=== PATIENT | male | born 1945 | race Caucasian/White ===

== ENCOUNTER → 2024-07-24 | Outpatient (CLI) | payer OTHER, SELFPAY ==
[2024-07-24 11:40] LABS: Collection Type, Urine Clean Catch
[2024-07-24 12:00] LABS: Bilirubin,Urine Negative (Negative); Blood,Urine Negative (Negative); Clarity,Urine Clear (Clear/Hazy); Color,Urine Yellow (Lt Yel-Yel); Culture Indicated,Urine Not Indicated; Glucose, Urine Negative (Negative); Ketones,Urine Negative (Negative); Leukocyte Esterase,Urine Negative (Negative); Nitrite,Urine Negative (Negative); Protein,Urine Negative (Neg - Trace); RBC,Urine 1 /hpf (0-3); Specific Gravity,Urine 1.013 (1.001-1.035); Squamous Epithelial Cell,Urine < 1 /hpf (0-5); Urobilinogen,Urine Negative mg/dL (0.0-1.0); WBC,Urine 3 /hpf (0-5)
[2024-07-24 12:00] LABS: Basophils # (Auto) 0.1 Thou/mm3 (0.0-0.2); Basophils % (Auto) 2 % (0-2.5); Eosinophils # (Auto) 0.2 Thou/mm3 (0.0-0.5); Eosinophils % (Auto) 3 % (0-10); Hemoglobin 15.7 g/dL (13.5-16.0); Immature Granulocytes % (Auto) 0 % (0-0); Immature Granulocytes Auto 0.02 Thou/mm3 (0.00-0.00); Lymphocytes # (Auto) 1.7 Thou/mm3 (1.0-4.8); Lymphocytes % (Auto) 23 % (10-50); Mean Corpuscular HGB Conc 33.4 g/dl (31.0-37.0); Mean Corpuscular Hemoglobin 29.6 pg (25.0-35.0); Mean Corpuscular Volume 89 fL (80-100); Monocytes # (Auto) 0.7 Thou/mm3 (0.0-0.8); Monocytes % (Auto) 10 % (0-12); Neutrophils # (Auto) 4.6 Thou/mm3 (1.8-7.7); Neutrophils % (Auto) 62 % (37-80); Nucleated Red Blood Cell % 0 /100 WBC (0); Platelet Count 322 Thou/mm3 (140-440); RDW Standard Deviation 44.6 fL (35.1-43.9); Red Blood Count 5.31 Miln/mm3 (4.50-5.90); White Blood Count 7.4 Thou/mm3 (3.8-10.6)
[2024-07-24 12:20] LABS: Glucose Estimated Average 120 mg/dL (80-131); Hemoglobin A1C 5.8 % Hgb (4.8-6.0)
[2024-07-24 12:24] LABS: Prostate Specific Antigen 6.72 ng/mL (0-4.00)
[2024-07-24 12:44] LABS: Alanine Aminotransferase 9 U/L (10-49); Albumin, Serum 3.9 gm/dL (3.4-4.8); Albumin/Globulin Ratio 1.3 (1.2-2.2); Alkaline Phosphatase 66 U/L (46-116); Anion Gap 6 (7-16); Aspartate Amino Transferase 14 U/L (0-34); BUN/Creatinine Ratio 14 Ratio (12-20); Bilirubin,Total 0.7 mg/dL (0.3-1.2); Blood Urea Nitrogen 14 mg/dL (9-23); Calcium 9.2 mg/dL (8.3-10.6); Calcium (Corrected) 9.3 mg/dL (8.5-10.1); Carbon Dioxide 32.6 mMol/L (20.0-31.0); Cardiac Risk Estimate 3.6 RATIO (4.0-6.7); Chloride 100 mMol/L (98-107); Cholesterol 195 mg/dL (132-200); Glucose 121 mg/dL (74-106); HDL Cholesterol 54 mg/dL (40-60); LDL Cholesterol,Calculated 113 mg/dL (0-130); Osmolality,Calculated 279 (275-295); Potassium 4.4 mMol/L (3.4-5.1); Sodium 139 mMol/L (136-145); Thyroid Stimulating Hormone 2.64 uIU/mL (0.55-4.78); Total Protein 6.9 gm/dL (5.7-8.2); Triglycerides 142 mg/dL (30-150); eGFR > 60 See Note
== END | disposition home or self-care (01) ==
LOC: COPL 10:57
PROVIDERS: PCP Physician Assistant; Referring Provider Physician Assistant; Visit Provider Physician Assistant
DX: I25.118 Atherosclerotic heart disease of native coronary artery with other forms of angina pectoris (principal)
CPT/HCPCS: 36415; 80053; 80061; 81001; 83036; 84153; 84443; 85025

== ENCOUNTER → 2024-07-31 | Outpatient (CLI) | payer OTHER, SELFPAY ==
[2024-08-02 06:54] LABS: Fecal Globin Result NOT DETECTED (NOT DETECTED)
== END | disposition home or self-care (01) ==
LOC: SLDO 11:59
PROVIDERS: Referring Provider Physician Assistant; Visit Provider Physician Assistant
DX: I25.118 Atherosclerotic heart disease of native coronary artery with other forms of angina pectoris (principal)
CPT/HCPCS: 82274; G0328

== ENCOUNTER → 2024-08-15 | Outpatient (CLI) | payer OTHER, SELFPAY ==
--- NOTE | 2024-08-15 09:45 | XR_ITS ---
Examination: Urinary bladder sonography complete TECHNIQUE: Grayscale sonographic images urinary bladder Exam date and time: Elevated PSA on laboratory examination July 24, 2024 FINDINGS: Prostate volume 43 cc Multiple solid prostate masses, the largest 18 x 18 x 18 mm Mid bladder hyperechoic solid mass 11 x 10 x 8 mm IMPRESSION: Multiple prostate nodules, recommend transrectal prostate sonography follow-up 1.1 x 1.0 x 2.8 cm possible bladder mass, recommend cystoscopy follow-up to exclude bladder cancer
== END | disposition home or self-care (01) ==
LOC: CDIM 09:21
PROVIDERS: PCP Family Medicine; Referring Provider Physician Assistant; Visit Provider Physician Assistant
DX: N40.2 Nodular prostate without lower urinary tract symptoms (principal); N32.89 Other specified disorders of bladder
CPT/HCPCS: 76857

== ENCOUNTER → 2024-10-26 | Outpatient (BNVA) | payer OTHER, SELFPAY | END | disposition home or self-care (01) | PROVIDERS: PCP Family Medicine; Referring Provider Family Medicine; Visit Provider Urology | DX: N40.1 Benign prostatic hyperplasia with lower urinary tract symptoms (principal); N13.8 Other obstructive and reflux uropathy; R35.0 Frequency of micturition; R97.20 Elevated prostate specific antigen [PSA] | CPT/HCPCS: 81003; 99213; G0463 ==

== ENCOUNTER → 2024-11-16 | Outpatient (BNVA) | payer OTHER, SELFPAY | END | disposition home or self-care (01) | PROVIDERS: PCP Family Medicine; Referring Provider Family Medicine; Visit Provider Urology | DX: C61 Malignant neoplasm of prostate (principal); N40.1 Benign prostatic hyperplasia with lower urinary tract symptoms; N13.8 Other obstructive and reflux uropathy | CPT/HCPCS: 55700; 76942; 81003; 96372; A4649; J1580; J3490; A9270 ==

== ENCOUNTER → 2024-11-23 | Outpatient (BNVA) | payer OTHER, SELFPAY | END | disposition home or self-care (01) | PROVIDERS: PCP Family Medicine; Referring Provider Family Medicine; Visit Provider Urology | DX: N40.1 Benign prostatic hyperplasia with lower urinary tract symptoms (principal); R39.12 Poor urinary stream | CPT/HCPCS: 51741; 51798; 99212; G0463 ==

== ENCOUNTER 2025-01-10 12:39 | Observation (INO) | payer OTHER, SELFPAY ==
[2025-01-09 11:09] VITALS: BMI 21.8
--- NOTE | 2025-01-09 11:30 | EKG_ITS ---
[facility] Test Date: 2025-01-09 Pat Name: DENZEL DREW Department: Room: - Gender: Male [employer] Manager: RT STUDENT : 1945 Requested By: Kurt Henry Order Number: [id number] Reading MD: Kurt Henry Measurements Intervals [place] Rate: 86 P: 88 MS: 142 QRS: -40 QRSD: 109 T: 76 QT: 363 QTc: 435 Interpretive Statements SINUS RHYTHM MARKED LEFT AXIS DEVIATION [QRS AXIS < -30] Compared to ECG 07/29/2023 12:29:17 Left-axis deviation now present Sinus arrhythmia no longer present ST (T wave) deviation no longer present /store/S0/[id number]/ecg/[id number].pdf
[2025-01-09 14:00] LABS: Alanine Aminotransferase < 7 U/L (10-49); Albumin, Serum 4.1 gm/dL (3.4-4.8); Albumin/Globulin Ratio 1.3 (1.2-2.2); Alkaline Phosphatase 66 U/L (46-116); Anion Gap 7 (7-16); Aspartate Amino Transferase 16 U/L (0-34); BUN/Creatinine Ratio 8 Ratio (12-20); Bilirubin,Total 0.5 mg/dL (0.3-1.2); Blood Urea Nitrogen 7 mg/dL (9-23); Calcium 9.5 mg/dL (8.3-10.6); Calcium (Corrected) 9.5 mg/dL (8.5-10.1); Carbon Dioxide 32.5 mMol/L (20.0-31.0); Chloride 103 mMol/L (98-107); Creatinine (Component) 0.9 mg/dL (0.6-1.3); Estimated Creatinine Clearance 59.3 mL/min (>60); Globulin 3.1 gm/dL (2.3-3.5); Glucose 71 mg/dL (74-106); Osmolality,Calculated 279 (275-295); Potassium 4.2 mMol/L (3.4-5.1); Sodium 142 mMol/L (136-145); Total Protein 7.2 gm/dL (5.7-8.2); eGFR > 60 See Note
--- NOTE | 2025-01-09 14:40 | SUR.PREOP ---
Cardiac records reviewed with Dr Henry.
[2025-01-10] VITALS (14 sets, daily range): BP systolic 104–151; BP diastolic 65–102; PULSE 75–96; RESP 17–22; TEMP 36.1–36.6; O2SAT 93–99; BMI 21.7
[2025-01-10] MEDS: RINGERS LACTATED 1000 ML 1,000 ML 20 ML IV (08:40)
[2025-01-10] MEDS: ALBUTEROL RT 2.5 MG/3 ML NEBU INH (08:52)
--- NOTE | 2025-01-10 09:40 | CHAP ---
Patient was sleeping peacefully. I prayed beside his bed quietly.
--- NOTE | 2025-01-10 11:22 | SUR.PHASEI ---
pt received from OR in recovery bay 1. pt obtunded, breathing unlabored on oxymask 6l, oral airway in place. v/s stable. pt has [address] in [address]. report received from Dr. Simpson and Jj RIVERA.
--- NOTE | 2025-01-10 11:30 | ESOP_ITS ---
Date of Procedure 01/10/25 Pre Op Diagnosis BPH with urinary obstruction and LUTS, gross hematuria, biopsy-proven adenocarcinoma of the prostate gland Post Op Diagnosis Same plus very trabeculated bladder with multiple shallow diverticuli 3 bladder tumor anterior bladder wall Procedure Cystoscopic examination, transurethral resection and fulguration of bladder tumors, insertion of Yi catheter Findings Trabeculated bladder with shallow diverticuli very large median lobe 3 bladder tumors anterior bladder wall 1 in the diverticulum Procedure Description Indication for procedure this is a 79-year-old gentleman this patient has BPH with urinary obstruction and LUTS he has elevated PSA biopsy was done this revealed adenocarcinoma of the prostate gland. Patient has 1 episode of gross hematuria prior to the biopsy he was recommended cystoscopic examination procedure and complications were discussed with patient in great detail and i nformed consent is obtained. Patient was brought to the operating room in a satisfactory condition after appropriate premedication he was appropriately identified by surgeon and operating room staff site scope and indication of the procedure were reconfirmed with the patient Patient was positioned in the supine position on the operating table general anesthesia was given uneventfully patient was next positioned in a dorsal lithotomy position parts were prepped and draped in the usual sterile fashion 2% lidocaine was instilled into the urethra. 21 cystoscope was introduced into the bladder per urethra anterior urethra was without any stricture prostatic urethra reveals large median lobe it was obstructed. Inside of the bladder and all the quadrant was carried out there were 3 tumors in the anterior bladder wall. Decision was made to resect the tumors and fulgurate. Cystoscope was withdrawn gently I used 25 resectoscope inserted into the bladder. Sharp dissection with the cutting current I was able to resect the tumors the base of the tumor was fulgurated no active bleeding was seen. Using Ilich evacuator bladder tumor fragments were removed next the instrument was withdrawn gently #20 Yi catheter was inserted into the bladder catheter balloon was inflated with 10 cc of water, catheter was irrigated here return of the fluid was light pink. Next patient after having tolerated the procedure well was transferred to recovery room in a satisfactory condition. Patient is 79-year-old gentleman she had serial bladder tumor and tumors were resected he is going to be admitted in the hospital overnight for observation Anesthesia GETA Pathology / specimen Other (Bladder tumor) Estimated Blood Loss 5 Condition Stable Disposition PACU Surgeon Kesha Chua MD Surgical Staff Operation Date: 01/10/25 10:00 Case Staff Anesthesiologist: Bryon Simpson
[2025-01-10] MEDS: fentaNYL CIT INJ 50 mCg/ML AMP 2ML 25 MCG IVP (12:17)
[2025-01-10] MEDS: RINGERS LACTATED 1000 ML 1,000 ML 80 ML IV (12:22)
--- NOTE | 2025-01-10 12:42 | SUR.PHASEII ---
pt awake and alert, breathing unlabored on 2l nc. v/s stable. pt has [address] in [address]. report called to Merly Rueda. pt will be transferred to room at this time.
--- NOTE | 2025-01-10 13:16 | ESHP_ITS ---
<Statement entered by Dawood Estevez MD - 01/10/25 20:15> 79-year-old male with past medical history of BPH with urinary obstruction and biopsy-proven adenocarcinoma of the prostate who is admitted s/p cystoscopy and transurethral resection and fulguration of bladder tumors with insertion of Yi catheter after. Findings include 3 bladder tumors that were removed and now being admitted overnight for observation. Per urology recommendations, Yi is to be left in place and will be re-evaluated tomorrow. Otherwise, multi-modal pin management in place. ----- Note reviewed and agree with care plan as documented. Please refer to the note below for further details. Plan discussed with attending physician Dr. Shilpi Estevez MD PGY-2 Internal Medicine Documentation for date of: 01/10/25 HPI History of Present Illness History of present illness: 79 yo M w/ PMH BPH with urinary obstruction and LUTS was found to have elevated PSA, subsequent biopsy revealed adenocarcinoma of prostate gland. Pt then reported hematuria, was brought to [facility] for cystoscopy w/ Urologist Dr. Chua. Cystoscopy performed today 01/10/25 revealed 3 tumors in the anterior bladder wall. Decision was made to resect the tumors and fulgurate without complication and Yi was placed. Now being admitted by internal medicine team for observation. Post-procedure, pt endorses ongoing 3/10 suprapubic pain exacerbated by urination and mild constipation. Otherwise denies chest pain, fever, chills, n/v/d. PCP: Dr. Gigi Villarreal PMHx: BPH, Prostate Ca Medications: None FHx: None SHx: 30 pack year smoke hx, currently smoking 2-3 cigs daily for last 3 months. No EtOH. Lives alone in house, only family is brother in [place]. PSHx: Cholecystectomy Review of Systems Review of Systems Systems Reviewed: All systems reviewed, normal except as documented Past Medical History Past Medical History GENITOURINARY: Positive Benign Prostatic Hyperplasia Exam Vital Signs Temp Pulse Resp BP Pulse Ox O2 Flow Rate 97.2 F 76 17 139/82 H 97 2 01/10/25 12:00 01/10/25 12:30 01/10/25 12:30 01/10/25 12:30 01/10/25 12:30 01/10/25 12:30 Narrative Exam General: AOx3, no acute distress, able to speak full sentences HEENT: NC/AT, mucous membranes moist, bilateral sclera anicteric Cardiovascular: regular rate and rhythm, S1/S2 present, no murmurs appreciated Pulmonary: clear to auscultation bilaterally, no rales/rhonchi/wheezes Abdominal: soft, suprapubic TTP, non-distended, no rebound/guarding, normal bowel sounds present Musculoskeletal: normal ROM Skin: warm and dry, intact, no rashes Neuro: CN II-XII intact, no focal deficits Results: Labs 01/09/25 12:01 Labs: BMP 01/09/25 12:01 Sodium 142 Potassium 4.2 Chloride 103 Carbon Dioxide 32.5 H BUN 7 L Creatinine 0.9 Glucose 71 L Calcium 9.5 Liver Function 01/09/25 Range/Units 12:01 Total Bilirubin 0.5 (0.3-1.2) mg/dL AST 16 (0-34) U/L ALT < 7 L (10-49) U/L Alkaline Phosphatase 66 (46-116) U/L Albumin 4.1 (3.4-4.8) gm/dL Quality Measures Quality Measures none Advance care planning discussed with:: patient Medications Home Medications and Allergies Allergies Allergy/AdvReac Type Severity Reaction Status Date / Time No Known Allergies Allergy Verified 01/09/25 11:01 Visit Medications Acetaminophen (Acetaminophen 325 Mg Tablet) 650 mg PO Q6H PRN PRN Reason: Fever >99.9 Stop: 02/09/25 11:34 Famotidine (Famotidine Inj 10 Mg/Ml Vial 2 Ml) 20 mg IVP Q12HR VASHTI Stop: 02/09/25 20:59 Finasteride (Finasteride 5 Mg Tablet) 5 mg PO QDAY VASHTI Stop: 02/10/25 08:59 Hydromorphone HCl (Hydromorphone Inj 2 Mg/Ml Vial) 0.5 mg IVP Q4H PRN PRN Reason: Pain 7-10 Stop: 01/15/25 11:34 Hydromorphone HCl (Hydromorphone Inj 2 Mg/Ml Vial) 1 mg IVP Q2HR PRN PRN Reason: BREAKTHROUGH PAIN 7-10 Stop: 01/15/25 13:59 Lactated Ringer's (Lactated Ringers) 1,000 mls @ 80 mls/hr IV .[id number] VASHTI Stop: 02/09/25 12:14 Last Admin: 01/10/25 12:22 Dose: 80 mls/hr Lidocaine (Lidocaine 5% 1 Patch) 1 patch TOP UD PRN; Protocol PRN Reason: Suprapubic Pain Stop: 02/09/25 12:08 Ondansetron HCl (Ondansetron Inj 2 Mg/Ml Inj 2 Ml) 4 mg IVP Q6H PRN; Protocol PRN Reason: NAUSEA OR VOMITING Stop: 02/09/25 11:34 Oxycodone/Acetaminophen (Oxycodone/Apap 5/325 Tablet) 1 tab PO Q4H PRN PRN Reason: PAIN SCALE 4-6 (Moderate Stop: 01/15/25 11:34 Discontinued Medications Albuterol (Albuterol Rt 2.5 Mg/3 Ml Nebu) 2.5 mg INH X1 ONE Stop: 01/10/25 08:45 Last Admin: 01/10/25 08:52 Dose: 2.5 mg Fentanyl Citrate (Fentanyl Cit Inj 50 Mcg/Ml Amp 2ml) 25 mcg IVP Q5M PRN; Protocol PRN Reason: PAIN SCALE 7-10 (Severe Stop: 01/10/25 12:37 Fentanyl Citrate (Fentanyl Cit Inj 50 Mcg/Ml Amp 2ml) 25 mcg IVP Q5M PRN; Protocol PRN Reason: PAIN SCALE 4-6 (Moderate Stop: 01/10/25 12:37 Fentanyl Citrate (Fentanyl Cit Inj 50 Mcg/Ml Amp 2ml) 25 mcg IVP Q5M PRN; Protocol PRN Reason: PAIN SCALE 1-3 (mild Stop: 01/10/25 12:37 Fentanyl Citrate (Fentanyl Cit Inj 50 Mcg/Ml Amp 2ml) 25 mcg IVP X1 ONE Stop: 01/10/25 12:14 Last Admin: 01/10/25 12:17 Dose: 25 mcg Gentamicin Sulfate 160 mg/ (Sodium Chloride) 104 mls @ 100 mls/hr IV X1 ONE Stop: 01/10/25 07:02 Last Admin: 01/10/25 12:02 Dose: Not Given Lactated Ringer's (Lactated Ringers) 1,000 mls @ 20 mls/hr IV .Q24H ONE Stop: 01/11/25 05:59 Last Infusion: 01/10/25 12:03 Dose: Infused Ondansetron HCl (Ondansetron Inj 2 Mg/Ml Inj 2 Ml) 4 mg IVP X1 ONE Stop: 01/10/25 10:38 Assessment & Plan Plan #Bladder tumors, unspecified etiology #Prostate Adenocarcinoma #BPH Pt found to have biopsy-proven prostate adenocarcinoma, subsequently reported painless hematuria. Urology Dr. Chua performed cystoscopy today 01/10/25 to investigate, discovered 3 anterior bladder wall tumors that were subsequently resected. Yi catheter was placed. Pt does not have an Oncologist. Consult with Heme/Onc Dr. Merritt arranged through Dr. Chua per chart review. Latest PSA 6.72 per chart review. - Pt has catheter placed, draining sanguinous urine as expected post-resection. - FINASTERIDE and FLOMAX initiated per Urology - Pt has Yi catheter placed with instructions to not irrigate d/t risk of bladder wall perforation - Dr. Chua will see pt tomorrow to discuss next steps Hospital management: Disposition: Pending FU w/ Urologist Dr. Chua to discuss further management/recovery course Fluids: LR 1000mls @80mls/hr Diet: Renal Diet DVT prophylaxis: N/A GI prophylaxis: Yi: Yes CODE STATUS: full code ----- Plan discussed with attending physician Dr. Shilpi Nichols, Medical Student [employer] Attending Provider Attestation/Addendum I attest that I was physically present for the evaluation, physical examination, lab and imaging review of the patient with the residents. I discussed the case with the residents and agree with the findings and plans of care as documented above. After examination of the patient and review of the clinical data I feel that this patient needs observation in the hospital for further treatment/evaluation Sydnee Dobbins MD
[2025-01-10] MEDS: FAMOTIDINE INJ 10 MG/ML VIAL 2 ML 20 MG IVP (20:20)
[2025-01-10] MEDS: RINGERS LACTATED 1000 ML 1,000 ML 100 ML IV (23:25)
[2025-01-11] VITALS: BP 105/68; PULSE 64; RESP 17; TEMP 36.9; O2SAT 94
[2025-01-11 04:00] VITALS: BP 113/72; PULSE 74; RESP 17; TEMP 36.7; O2SAT 91
[2025-01-11 05:54] LABS: Basophils # (Auto) 0.1 Thou/mm3 (0.0-0.2); Basophils % (Auto) 0 % (0-2.5); Eosinophils # (Auto) 0.0 Thou/mm3 (0.0-0.5); Eosinophils % (Auto) 0 % (0-10); Hematocrit 38.7 % (41.0-53.0); Hemoglobin 12.8 g/dL (13.5-16.0); Immature Granulocytes Auto 0.06 Thou/mm3 (0.00-0.00); Lymphocytes # (Auto) 1.5 Thou/mm3 (1.0-4.8); Lymphocytes % (Auto) 10 % (10-50); Mean Corpuscular HGB Conc 33.1 g/dl (31.0-37.0); Mean Corpuscular Hemoglobin 30.1 pg (25.0-35.0); Mean Corpuscular Volume 91 fL (80-100); Monocytes # (Auto) 1.1 Thou/mm3 (0.0-0.8); Monocytes % (Auto) 7 % (0-12); Neutrophils # (Auto) 12.5 Thou/mm3 (1.8-7.7); Neutrophils % (Auto) 83 % (37-80); Nucleated Red Blood Cell # 0.00 Thou/mm3 (0.00-0.00); Nucleated Red Blood Cell % 0 /100 WBC (0); Platelet Count 218 Thou/mm3 (140-440); RDW Standard Deviation 48.2 fL (35.1-43.9); Red Blood Count 4.25 Miln/mm3 (4.50-5.90); White Blood Count 15.2 Thou/mm3 (3.8-10.6)
[2025-01-11 06:14] LABS: Albumin, Serum 3.4 gm/dL (3.4-4.8); Anion Gap 5 (7-16); BUN/Creatinine Ratio 11 Ratio (12-20); Blood Urea Nitrogen 9 mg/dL (9-23); Calcium 8.6 mg/dL (8.3-10.6); Calcium (Corrected) 9.1 mg/dL (8.5-10.1); Carbon Dioxide 30.3 mMol/L (20.0-31.0); Chloride 105 mMol/L (98-107); Creatinine (Component) 0.8 mg/dL (0.6-1.3); Estimated Creatinine Clearance 66.3 mL/min (>60); Glucose 108 mg/dL (74-106); Magnesium 1.4 mg/dL (1.6-2.6); Osmolality,Calculated 279 (275-295); Phosphorous 2.4 mg/dL (2.4-5.1); Potassium 4.2 mMol/L (3.4-5.1); Sodium 140 mMol/L (136-145); Thyroid Stimulating Hormone 0.67 uIU/mL (0.55-4.78); eGFR > 60 See Note
[2025-01-11 07:05] VITALS: PULSE 92; RESP 18; O2SAT 100
[2025-01-11 07:31] VITALS: BP 125/69; PULSE 58; RESP 18; TEMP 36.2; O2SAT 91
[2025-01-11] MEDS: FAMOTIDINE INJ 10 MG/ML VIAL 2 ML 20 MG IVP (09:19)
[2025-01-11] MEDS: FINASTERIDE 5 MG TABLET PO (09:19)
[2025-01-11] MEDS: Magnesium Sulfate 4 GM Ivpb 4 GM/50 ML BAG IV (09:20)
[2025-01-11] MEDS: RINGERS LACTATED 1000 ML 1,000 ML 100 ML IV (09:24)
--- NOTE | 2025-01-11 11:13 | PC.SS ---
Patient Eddie Whitehead is a 79 Year old male admitted for CYSTO. SS met with patient at bedside to discuss discharge plan. Patient reports he lives alone at home. Patient reports his friend Christina Fernandes is his surrogate decision maker, . Patient reports he does not utilize any source of DME to assist with ambulation. Patient is able to complete all ADLs's independently. Choice of pharmacy is [facility], patients PCP is Francheska Villarreal. At time of discharge patient will return home. Patient's friend will provide transportation. Discharge Plan: Home Next of kin: Friend, Christina Fernandes
[2025-01-11 11:59] VITALS: BP 113/73; PULSE 83; RESP 17; TEMP 36.2; O2SAT 89
--- NOTE | 2025-01-11 13:29 | ESDS_ITS ---
<Statement entered by Dawood Estevez MD - 01/11/25 13:40> Note reviewed and agree with care plan as documented. Please refer to the note below for further details. Plan discussed with attending physician Dawood Estevez MD PGY-2 Internal Medicine Planned Discharge Date 01/11/25 DS: Providers Provider Date of admission: 01/10/25 12:39 Primary care physician: Francheska Villarreal MD Admitting Provider: Kesha Chua MD Attending Provider on Admission: Sydnee Dobbins MD Attending Provider on DC: John Kulkarni Discharging Provider: John Kulkarni DS: Diagnosis Problem List Completed Was Problem List Reviewed/Reconciled?: Yes Hospital Course Hospital Course Hospital course: Eddie Whitehead is an 79 yo M w/ PMH BPH with urinary obstruction and LUTS was found to have elevated PSA, subsequent biopsy revealed adenocarcinoma of prostate gland. Pt then reported hematuria, was brought to [facility] for cystoscopy w/ Urologist Dr. Chua. 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 Decision was made to resect the tumors and fulgurate without complication and Yi was placed. Pt has since been regularly draining sanguinous urine via catheter as expected post-resection. He has not required pain medication this hospital stay. On discharge he is hemodynamically stable and without pain, as such cleared to discharge by both medicine and urology. He will be discharged to home with Tamsulosin 0.4mg PO qD, Finasteride 5mg PO qD, and Percocet 5-325mg PO Q4 PRN for pain. He was instructed to drink fluids, ensure catheter is draining, and follow up with Dr. Chua Urology as outpatient on Wednesday01/15/25. ----- Plan discussed with attending physician Dr. Shilpi Nichols, Medical Student O[employer] Time Spent with Patient Time attestation: Total time spent providing and/or coordinating discharge services: 39 min Time spent: Greater than 30 minutes Quality: VTE Deep Vein Thrombosis/Pulmonary Embolism Present on Admission: No Exam Vital Signs Temp Pulse Resp BP Pulse Ox O2 Del Method O2 Flow Rate 97.2 F 83 17 113/73 89 L Nasal Cannula 1 01/11/25 11:59 01/11/25 11:59 01/11/25 11:59 01/11/25 11:59 01/11/25 11:59 01/11/25 11:59 01/11/25 11:59 Narrative Exam General: AOx3, no acute distress, able to speak full sentences HEENT: NC/AT, mucous membranes moist, bilateral sclera anicteric Cardiovascular: regular rate and rhythm, S1/S2 present, no murmurs appreciated Pulmonary: clear to auscultation bilaterally, no rales/rhonchi/wheezes Abdominal: soft, non-tender, non-distended, no rebound/guarding, normal bowel sounds present Musculoskeletal: normal ROM Skin: warm and dry, intact, no rashes. Yi catheter in place, draining. Neuro: CN II-XII intact, no focal deficits Discharge Plan Plan Patient Disposition: HOME (Self Care) Patient condition on transfer: Stable Care Plan Goals: Starting Tamsulosin 0.4mg PO once daily and Finasteride 5mg PO once daily. Also Percocet 5-325mg PO Q4 PRN for pain. Make sure to drink lots of fluid and check that catheter is draining. Follow up with Urologist Dr. Chua on Wednesday01/15/2025 for catheter removal. Prescriptions/Referrals Prescriptions/Med Rec: New finasteride 5 mg Tablet 5 mg PO QDAY 30 Days Qty: 30 0RF tamsulosin 0.4 mg capsule 0.4 mg PO QDAY 30 Days Qty: 30 0RF oxycodone-acetaminophen 5-325 mg Tablet 1 tab PO Q4H MDD 4 PRN (Reason: Pain Scale 4-6 (Moderate) Qty: 10 0RF Rx Instructions: Status-post urological procedure Continued albuterol sulfate 90 mcg/actuation HFA aerosol inhaler 2 puff inhalation QID PRN (Reason: shortness of breath or wheezing) Qty: 8.5 0RF Referrals: Kesha Chua MD [Physician, Urology] Francheska Villarreal MD [Primary Care Provider, Family Practice] Patient/Caregiver Discharge Instructions Discharge Activity: activity as tolerated Education Materials: Anesthesia: General Anesthesia, Surgery Anesthesia After, Transurethral Bladder Biopsy, Cystoscopy, Preventing Surgical Site Infections, [facility] Instructions- Polish Print Language: Polish Stand Alone Forms: Anabel Award Info., Patient Portal Info Letter, Work/Release Restrictions Discharge Order Discharge Orders: Discharge (Routine); Ordered 01/11/25 Ordered By: Dawood Estevez Quality Discharge Quality Measures none MD Attestestation MD Attestation I attest that I was physically present for the evaluation, physical examination, lab and imaging review of the patient with the residents. I discussed the case with the residents and agree with the findings and plans of care as documented above. Sydnee Dobbins MD
--- NOTE | 2025-01-11 15:22 | PC.NURSE ---
called patients friend gumaro from [place]. He agreed to pick patient up. 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
[2025-01-11 15:25] VITALS: BP 133/74; PULSE 80; RESP 17; TEMP 36.2; O2SAT 91
== END 2025-01-11 16:30 | disposition home or self-care (01) ==
LOC: S3SX 15:27
PROVIDERS: Anesthesiology; Student in an Organized Health Care Education/Training Program; Admitting Provider Urology; PCP Family Medicine; Referring Provider Urology; Visit Provider Student in an Organized Health Care Education/Training Program
PROC: 0TBB8ZZ Excision of Bladder, Via Natural or Artificial Opening Endoscopic (ICD-10-PCS; CPT 52240; principal; 2025-01-10 09:45)
DX: C67.3 Malignant neoplasm of anterior wall of bladder (principal); C61 Malignant neoplasm of prostate; N32.89 Other specified disorders of bladder; Z01.810 Encounter for preprocedural cardiovascular examination; D49.4 Neoplasm of unspecified behavior of bladder; R31.0 Gross hematuria; N32.3 Diverticulum of bladder
CPT/HCPCS: 52240; 36415; 80053; 80069; 83735; 84443; 85025; 93005; 96361; 96374; 96375; 96376; A4217; A4649; C1894; G0378; J0131; J0461; J1100; J1580; J1885; J2250; J2405; J2704; J3010; J3475; J3490; J7120; A9270

== ENCOUNTER → 2025-01-15 | Outpatient (BNVA) | payer OTHER, SELFPAY | END | disposition home or self-care (01) | PROVIDERS: PCP Family Medicine; Referring Provider Family Medicine; Visit Provider Urology | DX: C67.9 Malignant neoplasm of bladder, unspecified (principal); C61 Malignant neoplasm of prostate; Z46.6 Encounter for fitting and adjustment of urinary device; J44.9 Chronic obstructive pulmonary disease, unspecified; F17.210 Nicotine dependence, cigarettes, uncomplicated | CPT/HCPCS: 96372; 99212; J1580; G0463 ==

== ENCOUNTER → 2025-03-09 | Outpatient (BNVA) | payer OTHER, SELFPAY | END | disposition home or self-care (01) | PROVIDERS: PCP Family Medicine; Referring Provider Family Medicine; Visit Provider Urology | DX: C61 Malignant neoplasm of prostate (principal); C67.9 Malignant neoplasm of bladder, unspecified | CPT/HCPCS: 99212; G0463 ==